=== PATIENT | male | born 1995 | race Caucasian/White ===

== ENCOUNTER 2022-07-03 18:12 | Outpatient (REF) | payer BC, SELFPAY ==
[2022-07-05 20:09] LABS: Chlamydia Result Negative (Negative); GC Result Negative (Negative)
== END 2022-07-03 18:13 | disposition home or self-care (01) ==
LOC: LBN 18:12
PROVIDERS: PCP Family Medicine; Visit Provider Family Medicine
DX: R30.0 Dysuria (principal)
CPT/HCPCS: 87491; 87591

== ENCOUNTER 2023-04-29 14:27 | Outpatient (REF) | payer BC, SELFPAY ==
[2023-04-29 21:25] LABS: HCT 48.6 % (40.0-50.0); HGB 16.7 g/dL (13.5-17.5); MCH 28.9 pg (27.0-33.0); MCHC 34.4 % (32.0-36.0); MCV 84 fL (80-95); MPV 9.6 fL (8.0-11.0); Platelet Count 327 10^3/uL (130-400); RBC 5.77 10^6/uL (4.36-5.78); RDW 12.3 % (11.8-14.1); RDW-SD 37.7 fL; WBC 5.52 10^3/uL (4.4-10.8)
[2023-04-29 22:08] LABS: ALT 36 U/L (16-63); AST 18 U/L (15-37); Albumin 4.4 g/dL (3.4-5.0); Alkaline Phosphatase 77 U/L (46-116); Anion Gap 12.8 mmol/L (3-11); BUN 8 mg/dL (7-18); Bilirubin, Total 0.6 mg/dL (0.2-1.0); CO2 27.2 mmol/L (21.0-32.0); Calcium 9.7 mg/dL (8.5-10.1); Calculated LDL 100 mg/dL (<100); Chloride 104 mmol/L (98-107); Cholesterol 156 mg/dL (<200); Estimated GFR 105.79 (mL/min/1.73m2); Glucose 91 mg/dL (74-106); HDL Cholesterol 39 mg/dL (40-60); Potassium 4.4 mmol/L (3.5-5.1); Sodium 144 mmol/L (136-145); TSH (W/Ref FT4) 4.37 uIU/mL (0.36-3.74); Total Protein 7.5 g/dL (6.4-8.2); Triglyceride 88 mg/dL (<150)
[2023-04-29 22:25] LABS: FREE T4 1.03 ng/dL (0.76-1.46)
[2023-04-30 20:02] LABS: Hepatitis C Ab w Rflx HCV PCR Negative (Negative)
== END 2023-04-29 14:28 | disposition home or self-care (01) ==
LOC: LBN 14:27
PROVIDERS: PCP Nurse Practitioner Family; Visit Provider Nurse Practitioner Family
DX: R53.83 Other fatigue (principal); Z13.220 Encounter for screening for lipoid disorders; Z11.59 Encounter for screening for other viral diseases
CPT/HCPCS: 80053; 80061; 85027; 86803; 84439; 84443

== ENCOUNTER 2023-09-09 20:56 | Outpatient (REF) | payer BC, SELFPAY ==
[2023-09-11 13:16] LABS: HIV-1/2 Ag & Ab Screen Negative (Negative)
== END 2023-09-09 20:57 | disposition home or self-care (01) ==
LOC: LBN 20:56
PROVIDERS: PCP Nurse Practitioner Family; Visit Provider Nurse Practitioner Family
DX: Z11.4 Encounter for screening for human immunodeficiency virus [HIV] (principal)
CPT/HCPCS: 87389

== ENCOUNTER 2023-11-13 14:01 | Emergency (ER) | payer OTHER, SELFPAY ==
[2023-11-13 14:03] VITALS: BP 146/77; PULSE 110; RESP 18; TEMP 36.9; O2SAT 96
--- NOTE | 2023-11-13 14:08 | W.ED.GENAD ---
Discharge Plan Disposition Patient Disposition: Home Condition: Stable Discharge Details Clinical Impression: Accidental needlestick injury with exposure to body fluid Primary Care Provider: Raj Hunter ED Provider: John Abbott Home Meds and New Rx's Prescriptions: New emtricitabine-tenofovir (TDF) 200-300 mg tablet 1 tab PO DAILY 25 Days Qty: 25 0RF raltegravir 400 mg tablet 400 mg PO BID 25 Days Qty: 50 0RF Continued escitalopram oxalate 20 mg tablet 20 mg PO DAILY Qty: 30 0RF Rx Instructions: start with 0.5 tab po qd x 7 days, then increase to 1 tab po qd if tolerated albuterol sulfate 90 mcg/actuation HFA aerosol inhaler 2 inh inhalation Q6H PRN (Reason: shortness of breath or wheezing) Qty: 18 4RF (DME) Aerochamber MV Spacer See Rx Instructions .Route Qty: 1 0RF Rx Instructions: As directed Discharge Instructions Instructions: Raltegravir, HIV Testing, Emtricitabine and Tenofovir Disoproxil Fumarate, Hepatitis B Immune Globulin (Human), Hepatitis B Vaccine (Recombinant), Post-Exposure Prophylaxis Additional Instructions: You were seen in the emergency department for accidental needlestick on a cardiac arrest patient who is , this patient had high risk for having blood-borne pathogens and I think we are going to treat you as if positive. The main things to worry about are hepatitis B, hepatitis C, HIV. Source testing is unavailable to us so we are going to assume that the source is positive for all of these. For hepatitis B-you have received 3 doses of the hepatitis B vaccine as a child, we sent blood work testing for vaccine efficacy by testing you for hepatitis B surface antibodies. We will not get results of this test back, therefore we will be giving you a dose of the hepatitis B booster vaccine and the first dose of hepatitis B immune-globulin today. You will need another dose of Hep B IG in 30 days, you may possibly skip this dose if your labs return that you are immune and a vaccine responder. The source-patient you were working on scene was confirmed to be Hep C positive, unsure of treatment status- the prevention of this virus relies on careful testing and early detection, you will be started on a direct-acting antiviral immediately upon detection of onset of HCV, it is not guaranteed you will acquire hep C from this exposure. Hep C can be sexually transmitted please advise any partners you may have of this current risk. You need follow-up testing for HCV RNA in 3-6 weeks, and again in 4-6 months, and you will need specialist referral for any positivity. We are also going to start HIV post-exposure prophylaxis, You must take the medication Truvada QD and Raltegravir BID that we prescribed for 28 days total, we sent you home with an initial 3-day supply, you need repeat HIV testing 4 to 6 weeks, 3 months, and 6 months after this exposure Referrals: Raj Hunter NP [Primary Care Provider] - Discharge Data Discharge Date/Time-TO BE ENTERED AT DEPARTURE: 11/13/23 16:10 HPI General Date/Time Provider Initiated Documentation: 11/13/23 14:02. 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 Quality described as minor stick to R thumb fingerpad- did bleed, no radiation to active bleeding, states that the I/O did not get good return of marrow- so it may not have been exposed to marrow. Severity is described as minor. Palliating factors include nothing specific. Provoking factors include nothing specific. Events leading up to the incident/Associated Symptoms: The source patient did during the EMS call, and he is confirmed positive for Hep C per records search. Patient is vaccinated for Hepatitis B but unsure of responder status, has never had titre's drawn. Patient not anticoagulated. Related Data Home Medications ?Medication ?Instructions ?Recorded ?Confirmed albuterol sulfate 90 mcg/actuation 2 inh inhalation Q6H PRN shortness 07/15/23 11/13/23 aerosol inhaler of breath or wheezing #18 grams inhalational spacing device #1 ea 07/15/23 11/13/23 (Aerochamber MV spacer) escitalopram oxalate 20 mg tablet 20 mg PO DAILY #30 tabs 09/09/23 11/13/23 emtricitabine 200 mg-tenofovir 1 tab PO DAILY PEP 25 days #25 tabs 11/13/23 disoproxil fumarate 300 mg tablet raltegravir 400 mg tablet 400 mg PO BID PEP 25 days #50 tabs 11/13/23 Previous Rx's ?Medication ?Instructions ?Recorded albuterol sulfate 90 mcg/actuation 2 inh inhalation Q6H PRN shortness 07/15/23 aerosol inhaler of breath or wheezing #18 grams inhalational spacing device #1 ea 07/15/23 (Aerochamber MV spacer) escitalopram oxalate 20 mg tablet 20 mg PO DAILY #30 tabs 09/09/23 emtricitabine 200 mg-tenofovir 1 tab PO DAILY PEP 25 days #25 tabs 11/13/23 disoproxil fumarate 300 mg tablet raltegravir 400 mg tablet 400 mg PO BID PEP 25 days #50 tabs 11/13/23 Allergies Allergy/AdvReac Type Severity Reaction Status Date / Time procaine (From Novocain) AdvReac Mild Nausea Verified 11/13/23 14:51 General Stated Complaint: BodyFldExp ANTWAN: 3 Review of Systems All systems reviewed & are unremarkable except as noted in HPI and below Exam Narrative Exam Narrative: GENERAL APPEARANCE: Well-nourished, non-toxic, awake and alert, atraumatic, no acute distress. SKIN: Warm, pink, dry, single non-bleeding puncture wound in R thumb finger pad HEAD: Normocephalic, atraumatic, normal hair distribution for gender/age. EYES: Normal conjunctiva, no exudates on lids/lashes. ENT: Nares patent, no circumoral cyanosis, no facial swelling NECK: Supple, trachea midline, painless cervical ROM. LUNGS/CHEST: Non-labored respirations, normal A/P diameter, symmetrical expansion, no chest wall deformity HEART (CV/PV): No peripheral edema, no JVD. ABDOMEN: Soft, non-distended, no guarding. MSK: Normal ROM, no swelling/deformity to bilateral UEs or LEs, moving all extremities without weakness, no cyanosis, spine midline without tenderness, normal curvature. NEURO: Mental Status AAOx4 - alert to person, place, time, events No facial droop, no forehead involvement. Motor: No focal weakness - strength 5/5 in bilateral UEs and LEs, proximal and distal, symmetric. Sensory: sensation intact to light touch globally. Gait normal: patient ambulated without ataxia into ED room. PSYCH: euthymic, cooperative, pleasant, appropriate speech Course Vital Signs Vital signs: Vital Signs Temperature 36.9 C 11/13/23 14:03 Pulse 110 H 11/13/23 14:03 Respiratory Rate 18 11/13/23 14:03 Blood Pressure 146/77 H 11/13/23 14:03 Pulse Oximetry 96 11/13/23 14:03 Temperature 36.9 C 11/13/23 14:03 Temperature Source Oral 11/13/23 14:03 Pulse 110 H 11/13/23 14:03 Respiratory Rate 18 11/13/23 14:03 Blood Pressure 146/77 H 11/13/23 14:03 Pulse Oximetry 96 11/13/23 14:03 Medical Decision Making This dictation utilizes [id number] dictation software and may contain unedited grammatical errors. 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 Quality described as minor stick to R thumb fingerpad- did bleed, no radiation to active bleeding, states that the I/O did not get good return of marrow- so it may not have been exposed to marrow. Severity is described as minor. Palliating factors include nothing specific. Provoking factors include nothing specific. Events leading up to the incident/Associated Symptoms: The source patient did during the EMS call, and he is confirmed positive for Hep C per records search. Patient is vaccinated for Hepatitis B but unsure of responder status, has never had titre's drawn. Patients' medical history: noncontributory. Family and social history: works as an EMT. Pertinent exam findings / vital signs include nonbleeding puncture wound to right finger pad of thumb consistent with needlestick injury. Differential / pathologies of concern include exposure to hepatitis C, needlestick injury, high risk. Diagnostic studies of: -Liver Panel, Hep B sAb, Hep B c Ab send outs, Hep C rna send out, HIV w reflex. Interventions of: -Given hepatitis B Ig, hepatitis B vaccination, given postexposure prophylaxis for HIV. 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 The source patient is positive for hepatitis C, this is a high risk exposure, the patient is vaccinated for hepatitis B but unsure of responder status, source patient unknown if HIV positive. Will begin postexposure prophylaxis with hepatitis B immunoglobulin and hepatitis B shot #1 of series, patient will need another dose of immunoglobulin and the other 2 shots and the hepatitis B series should he be a nonresponder to the send out of surface antibodies to be tested for today-these would be given 30 days from administration. I counseled him on best practices regarding hepatitis C postexposure which is close monitoring by primary care with repeat testing, counseled on 28 days of postexposure prophylaxis medicines and side effects for HIV, patient was on board with completing postexposure prophylaxis regimen, strict return criteria for any complications. Disposition of accidental needlestick injury with exposure to body fluid. Patient verbalized understanding of the plan and return to ED criteria and engaged in shared decision making. Medical Records Medical records reviewed: Yes I reviewed the patient's medical records. Lab Data Lab results reviewed: Yes I reviewed the patient's lab results. Labs: Laboratory Tests Range/Units 11/13/23 14:30 Total Bilirubin (0.2-1.0) mg/dL 0.64 Conjugated Bilirubin (0.0-0.2) mg/dL 0.1 AST (15-37) U/L 19 ALT (16-63) U/L 39 Alkaline Phosphatase (46-116) U/L 78 Total Protein (6.4-8.2) g/dL 7.6 Albumin (3.4-5.0) g/dL 4.3 Quality:SDOH Health Related Social Needs: No Data to Display PFSH All Active Problems (Updated 11/13/23 @ 14:41 by CRISTIN Mckay) Accidental needlestick injury with exposure to body fluid (Acute) Pain of left thumb (Acute) Exercise-induced asthma (Acute) Fatigue (Acute) Anxiety (Chronic) Tinnitus of both ears (Acute) Insomnia (Acute) GERD (gastroesophageal reflux disease) (Chronic) Depression (Chronic) Medical History (Updated 11/13/23 @ 14:41 by CRISTIN Mckay) Postprandial nausea ADHD Family History Paternal Grandmother Cancer Lung Paternal Grandfather Cancer Brain Social History Smoking/Tobacco Use Status: Former Tobacco Use Tobacco: How many years used: 21 Smokeless tobacco user: other Quit status: has quit before Second Hand Exposure: Yes Smoking risk assessment performed?: Yes Alcohol Intake: current Alcohol Intake frequency: a few times a week Alcohol type: beer and wine Drug use: Never Substance use type: does not use Adopted: No Caregiver/Support person: No Foster care: No Household members: significant other Housing: house Number of Children: 0 number of grandchildren: 0 Communication Needs: None Education Level: college Do you need help understanding health information?: Never current occupation: EMT Pets and animals: Yes Pets and animals: cat(s) and dog(s) Sexually active: Yes Do you think of yourself as: lesbian/trotter/homosexual Current gender identity: male What is your relationship status?: living with partner How often do you talk on the phone with friends or family?: twice per week How often do you get together with friends or relatives?: twice per week Do you belong to any clubs or organized social groups?: yes Panel score (0-1 are the most socially isolated patients): 3 What type of physical activity do you participate in: other Details: cycling and additional Details: Mountain Biking Duration: 30-45 minutes/day Frequency: 1-2 times per week Elizabeth/Jehovah'S Witness: None Special elizabeth needs: No Seatbelt use: always Helmet use: Yes Helmet use: always Drive intox or ride w/intox batch mixing truck driver: No Firearms in home: Yes Do you feel safe at home: Yes Do you feel safe in your relationship?: Yes
[2023-11-13 14:55] LABS: ALT 39 U/L (16-63); AST 19 U/L (15-37); Albumin 4.3 g/dL (3.4-5.0); Alkaline Phosphatase 78 U/L (46-116); Bilirubin, Direct 0.1 mg/dL (0.0-0.2); Bilirubin, Total 0.64 mg/dL (0.2-1.0); Total Protein 7.6 g/dL (6.4-8.2)
[2023-11-13] MEDS: Tetanus & Diphtheria Tox,ADULT 0.5 ML VIAL IM (15:25)
[2023-11-13] MEDS: Hepatitis B Virus Vaccine 20 MCG/ML VIAL IM (16:02)
[2023-11-13] MEDS: Ondansetron O.D.T. 4 MG TABEF, 3 TABS/BTL 12 MG (16:03)
[2023-11-13] MEDS: Emtricitabine/Tenofovir 200 mg/300 mg TAB 1 EACH PO (16:03)
[2023-11-13] MEDS: Raltegravir Potassium 400 MG TAB PO (16:03)
[2023-11-16 10:33] LABS: Hepatitis B Surface Ag Negative (Negative)
[2023-11-16 10:41] LABS: HBs Antibody, Quant <3.1 mIU/mL (See Note); Hepatitis B Surface Ab Negative (See Note)
[2023-11-16 10:53] LABS: Hep B Core Antibody Negative (Negative)
[2023-11-16 11:15] LABS: Hepatitis C Ab w Rflx HCV PCR Negative (Negative)
[2023-11-17 14:58] LABS: HBc IgM Ab, S Negative (Negative)
== END 2023-11-13 16:10 | disposition home or self-care (01) ==
PROVIDERS: Emergency Provider Physician Assistant; PCP Nurse Practitioner Family
DX: S61.031A Puncture wound without foreign body of right thumb without damage to nail, initial encounter (principal); Z23 Encounter for immunization; Z87.891 Personal history of nicotine dependence; W46.1XXA Contact with contaminated hypodermic needle, initial encounter; Y93.F9 Activity, other caregiving; Y92.89 Other specified places as the place of occurrence of the external cause; Y99.0 Civilian activity done for income or pay
CPT/HCPCS: 80076; 86704; 86706; 86803; 87340; 90471; 90472; 90714; 90746; 96372; 99284; 86705; 99283; J1571

== ENCOUNTER 2023-12-30 15:27 | Outpatient (CLI) | payer OTHER, SELFPAY ==
[2023-12-31 09:21] LABS: HIV-1/2 Ag & Ab Screen Negative (Negative)
[2023-12-31 09:34] LABS: Hep B Core Antibody Negative (Negative)
[2023-12-31 09:43] LABS: Hepatitis C Ab w Rflx HCV PCR Negative (Negative)
== END 2023-12-30 15:28 | disposition home or self-care (01) ==
LOC: LBO 15:27
PROVIDERS: PCP Nurse Practitioner Family; Visit Provider Nurse Practitioner Family
DX: W46.1XXA Contact with contaminated hypodermic needle, initial encounter (principal)
CPT/HCPCS: 36415; 86704; 86803; 87389

== ENCOUNTER 2024-11-01 09:52 | Outpatient (REF) | payer BC, SELFPAY ==
[2024-11-01 11:41] LABS: ALT 49 U/L (16-63); AST 21 U/L (15-37); Albumin 4.5 g/dL (3.4-5.0); Alkaline Phosphatase 65 U/L (46-116); BUN 9 mg/dL (7-18); CO2 30.3 mmol/L (21.0-32.0); Calcium 9.6 mg/dL (8.5-10.1); Estimated GFR 122.86 (mL/min/1.73m2); Glucose 107 mg/dL (74-106); Potassium 3.9 mmol/L (3.5-5.1); Sodium 143 mmol/L (136-145); Total Protein 7.5 g/dL (6.4-8.2)
[2024-11-02 11:07] LABS: Syphilis Serology (RPR) Negative (Negative)
[2024-11-02 11:49] LABS: HIV-1/2 Ag & Ab Screen Negative (Negative)
[2024-11-02 12:03] LABS: HBs Antibody, Quant >1000.0 mIU/mL (See Note); Hepatitis B Surface Antigen Negative (Negative)
[2024-11-02 12:15] LABS: Hepatitis C Ab w Rflx HCV PCR Negative (Negative)
[2024-11-02 12:34] LABS: Chlamydia Result Negative (Negative); GC Result Negative (Negative)
== END 2024-11-01 09:53 | disposition home or self-care (01) ==
LOC: LBN 09:52
PROVIDERS: Nurse Practitioner Family; PCP Nurse Practitioner Family; Visit Provider Nurse Practitioner Family
DX: Z11.3 Encounter for screening for infections with a predominantly sexual mode of transmission (principal); Z77.21 Contact with and (suspected) exposure to potentially hazardous body fluids
CPT/HCPCS: 80053; 82947; 84520; 86704; 86706; 86803; 87340; 87389; 87491; 87591; 82040; 82247; 82310; 82374; 82565; 84075; 84132; 84155; 84295; 84450; 84460; 86592